=== PATIENT | female | born 1960 | race Caucasian/White ===

== ENCOUNTER → 2018-07-15 12:45 | Outpatient (CLI) | payer OTHER, SELFPAY ==
--- NOTE | 2018-07-15 | DI.MG.S_ITS ---
BILATERAL DIGITAL SCREENING MAMMOGRAM 3D/2D WITH CAD: 07/15/2018 CLINICAL: Routine screening. No prior exams were available for comparison. There are scattered fibroglandular elements in both breasts. Current study was also evaluated with a Computer Aided Detection (CAD) system. There is a mole marker on both breasts. No significant masses, calcifications, or other findings are seen in either breast. IMPRESSION: NEGATIVE There is no mammographic evidence of malignancy. A 1 year screening mammogram is recommended. This exam was interpreted at Station ID: [id number]. NOTE: For mammograms, a report in lay terms will be sent to the patient. Approximately 15% of breast malignancies will not be visualized mammographically. In the management of a palpable breast mass, a negative mammogram must not discourage biopsy of a clinically suspicious lesion. Electronically Signed By: Audi [email or web address]:07/15/2018 17:21:20 copy to: YU CUEVA letter sent: Normal Exam ACR BI-RADS Category 1: Negative [id number]
== END ==
PROVIDERS: Visit Provider Nurse Practitioner Family
DX: Z12.31 Encounter for screening mammogram for malignant neoplasm of breast (principal)
CPT/HCPCS: 77063; 77067

== ENCOUNTER → 2025-03-18 07:40 | Outpatient (CLI) | payer BC, SELFPAY ==
[2025-03-18 08:53] LABS: Hematocrit 41.1 % (36-46); Hemoglobin 14.1 g/dL (12.0-16.0); Mean Corpuscular HGB Conc 34.4 % (30-36); Mean Corpuscular Hemoglobin 32.8 PG (26-34); Mean Corpuscular Volume 95.5 fL (80-100); Platelet Count 257 X10^3/uL (150-400)
[2025-03-18 09:02] LABS: Add Manual Diff / Slide Review YES; Alanine Aminotransferase 25 IU/L (<35); Albumin 4.6 g/dL (3.5-5.0); Albumin Globulin Ratio 1.8 (1.0-2.8); Alkaline Phosphatase 72 U/L (38-126); Blood Urea Nitrogen 25 mg/dL (7-17); Calcium 9.4 mg/dL (8.4-10.2); Carbon Dioxide 29 mmol/L (22-32); Chloride 98 mmol/L (98-107); Cholesterol 205 mg/dL (140-199); Estimated Glomerular Filt Rate > 60 mL/min (>60); Globulin 2.5 g/dL (1.7-4.1); Glucose 94 mg/dL (70-99); HDL Cholesterol 88 mg/dL (40-60); HEMOLYSIS < 15 (0-50); Potassium 4.1 mmol/L (3.4-5.1); Sodium 134 mmol/L (137-145); Total Protein 7.1 g/dL (6.3-8.2); Triglycerides 65 mg/dL (35-150)
[2025-03-18 09:16] LABS: Progesterone, Total 5.16 ng/mL
[2025-03-18 09:19] LABS: T4 Total Thyroxine 5.37 ug/dL (5.5-11.0)
[2025-03-18 09:29] LABS: Basophils Percent Manual 1.0 % (0-1); Eosinophils Percent Manual 22.0 % (2-4); Lymphocytes Percent Manual 21.0 % (25-45); Monocytes Percent Manual 5.0 % (2-11); Neutrophils Absolute Manual 3519 /uL (3000-5900); RBC Morphology Normal Morphology; Segmented Neutrophils Percent 51.0 % (38-70); Total Cells Counted 100
[2025-03-18 09:33] LABS: Estradiol, Total 30.9 pg/mL
[2025-03-19 16:11] LABS: Anti Thyroglobulin Antibody <1.0 IU/mL (0.0-0.9)
[2025-03-22 15:39] LABS: Triiodothyronine T3 Reverse 12.7 ng/dL (.)
[2025-03-27 22:07] LABS: Estradiol, Sensitive 17.4 pg/mL (.)
== END ==
PROVIDERS: Referring Provider Physician Assistant Surgical; Visit Provider Physician Assistant Surgical
DX: Z13.29 Encounter for screening for other suspected endocrine disorder (principal); E07.89 Other specified disorders of thyroid; E28.39 Other primary ovarian failure; R89.1 Abnormal level of hormones in specimens from other organs, systems and tissues; R94.7 Abnormal results of other endocrine function studies
CPT/HCPCS: 36415; 80053; 80061; 82670; 84144; 84270; 84436; 84480; 84482; 85007; 85025; 86800